=== PATIENT | male | born 1950 | race Caucasian/White ===

== ENCOUNTER 2016-06-12 05:28 | Inpatient (IN) | payer MEDICAID, OTHER ==
[2016-06-12] MEDS ORDERED: Heparin for STEMI(*) 5,000 UNITS/ML 1 ML VIAL IV ONE (05:39)
[2016-06-12] MEDS ORDERED: Aspirin Low Dose CHEW TAB* 81 MG PO ONE (05:39)
[2016-06-12] MEDS ORDERED: Ticagrelor* 90 MG TAB PO ONE ×2 (05:39)
[2016-06-12] MEDS ORDERED: Heparin VIAL(*) 5000 UNITS/ML VIAL (FIVE THOUSAND) ONE (05:39)
[2016-06-12] MEDS ORDERED: Aspirin EC Low Dose* 81 MG TAB.EC ONE (05:39)
[2016-06-12] MEDS ORDERED: Nitroglycerin TAB 0.4 MG* 0.4 MG TAB ONE (05:39)
[2016-06-12] MEDS ORDERED: Midazolam* 1 MG/ML 5 ML VIAL (5 MG) ONE (05:43)
[2016-06-12] MEDS ORDERED: Iohexol 350 (CONTRAST) 200 ML MDV IV ONE (05:43)
[2016-06-12] MEDS ORDERED: Heparin 2 UNITS/ML IVPREMIX* 2,000 ML IV ONE (05:43)
[2016-06-12] MEDS ORDERED: fentaNYL* 50 MCG/ML 2 ML VIAL (100 MCG VIAL) ONE (05:43)
[2016-06-12] MEDS ORDERED: nitroGLYCERIN DRIP* 250 ML ONE ×2 (05:44→06:11)
[2016-06-12] MEDS ORDERED: Lidocaine 1% INJ* 10 MG/ML 30 ML SDV ONE (05:44)
[2016-06-12 05:52] LABS: Hematocrit 48 % (42-52); Hemoglobin 16.2 g/dl (14.0-18.0); Mean Corpuscular HGB Conc 34 g/dl (31-36); Mean Corpuscular Hemoglobin 29 pg (27-31); Mean Corpuscular Volume 85 fL (80-94); Mean Platelet Volume 8 um3 (7.4-10.4); Red Blood Count 5.69 10^6/ul (4.0-5.4); Red Cell Distribution Width 14 % (10.5-15); White Blood Count 11.2 10^3/ul (3.5-10.8)
[2016-06-12 06:04] LABS: Albumin 4.2 g/dL (3.2-5.2); BUN/Creatinine Ratio 16.7 (8-20); Calcium 9.7 mg/dL (8.6-10.3); EGFR African American 94.3 (>60); EGFR Non-African American 73.3 (>60); Globulin 3.5 g/dL (2-4); Total Bilirubin 0.4 mg/dL (0.2-1.0); Total Protein 7.7 g/dL (6.4-8.9)
[2016-06-12 06:10] LABS: Troponin I 1.39 ng/mL (<0.04)
[2016-06-12] MEDS ORDERED: Heparin(*) 1000 UNIT/ML 10 ML VIAL CATH LAB IV ONE (06:11)
[2016-06-12] MEDS ORDERED: VERAPAMIL 2.5 MG/ML 4 ML VIAL ONE (06:11)
--- NOTE | 2016-06-12 06:33 | ED ---
Christina Pelletier Anna, scribed for Declan Galvan MD on 06/12/16 at 0533 . HPI Chest Pain - HPI Summary HPI Summary: Patient is a 66 y/o male coming to [facility] presenting with sudden onset of constant, mid-sternal chest pain that began last night at 1800. He additionally reports left arm pain and jaw pain. His history is significant for HTN. He reports he has never had pain like this before. He has not taken any pain medication. He has not had any Aspirin today, though he normally takes 81 mg each day. - History of Current Complaint Hx Obtained From: Patient Onset/Duration: Started Hours Ago, Still Present - Additional Pertinent History Primary Care Physician: [id number] - Allergy/Home Medications Allergies/Adverse Reactions: Allergies Allergy/AdvReac Type Severity Reaction Status Date / Time No Known Allergies Allergy Verified 01/20/16 18:10 Home Medications: Home Medications Escitalopram (NF) [Lexapro (NF)] 10 mg PO DAILY 06/12/16 [History Confirmed 09/23] PMH/Surg Hx/FS Hx/Imm Hx Cardiovascular History: Reports: Hx Coronary Artery Disease, Hx Hypertension - ON MEDICATION, Other Cardiovascular Problems/Disorders - BLOCKAGE LEFT SIDE OF HEART History: Reports: Hx Kidney Infection - ONE YEAR AGO, Other Problems/ Disorders - enlarged prostate Musculoskeletal History: Reports: Other Musculoskeletal History Sensory History: Reports: Hx Cataracts, Hx Contacts or Glasses Denies: Hx Hearing Aid Opthamlomology History: Reports: Hx Cataracts, Hx Contacts or Glasses Psychiatric History: Reports: Hx Anxiety - Surgical History Hx Anesthesia Reactions: No - Immunization History Date of Tetanus Vaccine: unknown Date of Influenza Vaccine: never - Family History Known Family History: Positive: Hypertension - Social History Alcohol Use: None Substance Use Type: Reports: None Smoking Status (MU): Light Every Day Tobacco Smoker Type: Cigarettes Amount Used/How Often: 1 PPD Have You Smoked in the Last Year: Yes Review of Systems Positive: Chest Pain Positive: Myalgia - left arm pain All Other Systems Reviewed And Are Negative: Yes Physical Exam Triage Information Reviewed: Yes Vital Signs On Initial Exam: Initial Vitals BP 128/96 06/12/16 05:38 Vital Signs Reviewed: Yes Appearance: Positive: Ill-Appearing, Pain Distress - moderate discomfort Skin: Positive: Warm, Diaphoretic Head/Face: Positive: Normal Head/Face Inspection Eyes: Positive: QUINTEN ENT: Positive: Hearing grossly normal Neck: Positive: Supple Respiratory/Lung Sounds: Positive: Clear to Auscultation, Breath Sounds Present Cardiovascular: Positive: RRR. Negative: Murmur Abdomen Description: Positive: Nontender, Soft Bowel Sounds: Positive: Present Musculoskeletal: Positive: Strength/ROM Intact Neurological: Positive: Sensory/Motor Intact, Alert, Oriented to Person Place, Time Psychiatric: Positive: Normal Diagnostics - Vital Signs Vital Signs Temp Pulse Resp BP Pulse Ox 06/12/16 05:41 98.3 F 82 23 145/93 96 06/12/16 05:39 83 19 95 06/12/16 05:38 128/96 - Laboratory Lab Results: Lab Results 06/12/16 06/12/16 06/12/16 Range/Units 05:40 05:40 05:40 WBC 11.2 H (3.5-10.8) 10^3/ul RBC 5.69 H (4.0-5.4) 10^6/ul Hgb 16.2 (14.0-18.0) g/dl Hct 48 (42-52) % MCV 85 (80-94) fL MCH 29 (27-31) pg MCHC 34 (31-36) g/dl RDW 14 (10.5-15) % Plt Count 253 (150-450) 10^3/ul MPV 8 (7.4-10.4) um3 Neut % (Auto) 73.7 (38-83) % Lymph % (Auto) 16.1 L (25-47) % [place] % (Auto) 7.0 (1-9) % Eos % (Auto) 2.1 (0-6) % Baso % (Auto) 1.1 (0-2) % Absolute Neuts (auto) 8.3 H (1.5-7.7) 10^3/ul Absolute Lymphs (auto) 1.8 (1.0-4.8) 10^3/ul Absolute Monos (auto) 0.8 (0-0.8) 10^3/ul Absolute Eos (auto) 0.2 (0-0.6) 10^3/ul Absolute Basos (auto) 0.1 (0-0.2) 10^3/ul Absolute Nucleated RBC 0.01 10^3/ul Nucleated RBC % 0.1 INR (Anticoag Therapy) 0.88 L (0.89-1.11) APTT 30.3 (26.0-36.3) seconds Sodium 133 (133-145) mmol/L Potassium 4.0 (3.5-5.0) mmol/L Chloride 102 (101-111) mmol/L Carbon Dioxide 24 (22-32) mmol/L Anion Gap 7 (2-11) mmol/L BUN 17 (6-24) mg/dL Creatinine 1.02 (0.67-1.17) mg/dL Est GFR ( Amer) 94.3 (>60) Est GFR (Non-Af Amer) 73.3 (>60) BUN/Creatinine Ratio 16.7 (8-20) Glucose 126 H (70-100) mg/dL Lactic Acid (0.5-2.0) mmol/L Calcium 9.7 (8.6-10.3) mg/dL Total Bilirubin 0.40 (0.2-1.0) mg/dL AST 29 (13-39) U/L ALT 29 (7-52) U/L Alkaline Phosphatase 92 (34-104) U/L Total Creatine Kinase 324 H (10-223) U/L CK-MB (CK-2) 29.9 H (0.6-6.3) ng/mL Myoglobin 190.4 H (17.4-105.7) ng/mL Troponin I 1.39 H* (<0.04) ng/mL B-Natriuretic Peptide ( - 100) pg/mL Total Protein 7.7 (6.4-8.9) g/dL Albumin 4.2 (3.2-5.2) g/dL Globulin 3.5 (2-4) g/dL Albumin/Globulin Ratio 1.2 (1-3) LDL Cholesterol Direct 106 mg/dL Blood Type Antibody Screen 06/12/16 06/12/16 06/12/16 Range/Units 05:40 05:40 05:40 WBC (3.5-10.8) 10^3/ul RBC (4.0-5.4) 10^6/ul Hgb (14.0-18.0) g/dl Hct (42-52) % MCV (80-94) fL MCH (27-31) pg MCHC (31-36) g/dl RDW (10.5-15) % Plt Count (150-450) 10^3/ul MPV (7.4-10.4) um3 Neut % (Auto) (38-83) % Lymph % (Auto) (25-47) % [place] % (Auto) (1-9) % Eos % (Auto) (0-6) % Baso % (Auto) (0-2) % Absolute Neuts (auto) (1.5-7.7) 10^3/ul Absolute Lymphs (auto) (1.0-4.8) 10^3/ul Absolute Monos (auto) (0-0.8) 10^3/ul Absolute Eos (auto) (0-0.6) 10^3/ul Absolute Basos (auto) (0-0.2) 10^3/ul Absolute Nucleated RBC 10^3/ul Nucleated RBC % INR (Anticoag Therapy) (0.89-1.11) APTT (26.0-36.3) seconds Sodium (133-145) mmol/L Potassium (3.5-5.0) mmol/L Chloride (101-111) mmol/L Carbon Dioxide (22-32) mmol/L Anion Gap (2-11) mmol/L BUN (6-24) mg/dL Creatinine (0.67-1.17) mg/dL Est GFR ( Amer) (>60) Est GFR (Non-Af Amer) (>60) BUN/Creatinine Ratio (8-20) Glucose (70-100) mg/dL Lactic Acid 1.6 (0.5-2.0) mmol/L Calcium (8.6-10.3) mg/dL Total Bilirubin (0.2-1.0) mg/dL AST (13-39) U/L ALT (7-52) U/L Alkaline Phosphatase (34-104) U/L Total Creatine Kinase (10-223) U/L CK-MB (CK-2) (0.6-6.3) ng/mL Myoglobin (17.4-105.7) ng/mL Troponin I (<0.04) ng/mL B-Natriuretic Peptide 236 H ( - 100) pg/mL Total Protein (6.4-8.9) g/dL Albumin (3.2-5.2) g/dL Globulin (2-4) g/dL Albumin/Globulin Ratio (1-3) LDL Cholesterol Direct mg/dL Blood Type O Positive Antibody Screen Pending Result Diagrams: 06/12/16 05:40 06/12/16 05:40 Lab Statement: Any lab studies that have been ordered have been reviewed, and results considered in the medical decision making process. - EKG 0527 Cardiac Rate: NL - 82 bpm EKG Rhythm: Sinus Rhythm Ectopy: None EKG Interpretation: Acute Anterior STEMI Chest Pain Course/Dx - Course Assessment/Plan: Patient is a 66 y/o male [facility] presenting with sudden onset of constant, mid-sternal chest pain that began last night at 1800. He additionally reports left arm pain and jaw pain. His history is significant for HTN. He reports he has never had pain like this before. He has not taken any pain medication. He has not had any Aspirin today, though he normally takes 81 mg each day. EKG reveals acute anterior STEMI. Labs reveal troponin of 1.39, BNP of 236, Glucose of 126, myoglobin of 190.4, creatine kinase of 324, CK-MB of 29.9, INR of .88. 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 - Diagnoses Provider Diagnoses: STEMI (ST elevation myocardial infarction) During the Visit The Following Alert/Code Occurred: STEMI - Provider Notifications Instructed by Provider To: Admit As Inpatient - Critical Care Time Critical Care Time: 30-74 min Discharge - Discharge Plan Condition: Critical Disposition: ADMITTED TO [facility] documentation as recorded by the Christina fisher Anna accurately reflects the service I personally performed and the decisions made by , Declan Galvan MD.
--- NOTE | 2016-06-12 07:42 | RAD ---
INDICATION: Chest pain. COMPARISON: Comparison is made with a prior chest x-ray study from January 20, 2016. TECHNIQUE: A portable view of the chest was obtained. FINDINGS: Cardiac and mediastinal contours appear to be within normal limits. The lungs are clear. No pleural effusion is seen. IMPRESSION: NO EVIDENCE FOR ACUTE DISEASE.
[2016-06-12] MEDS ORDERED: Acetaminophen TAB* 325 MG PO PRN (07:46)
[2016-06-12] MEDS ORDERED: Ondansetron INJ* 2 MG/ML VIAL IV PRN ×2 (07:46→14:17)
[2016-06-12] MEDS ORDERED: oxyCODONE/Acetamin 5/325 MG* TAB PO PRN (07:46)
[2016-06-12] MEDS ORDERED: Nitroglycerin TAB 0.4 MG* 0.4 MG TAB SL PRN (07:46)
[2016-06-12] MEDS ORDERED: Zolpidem TAB* 5 MG PO PRN (07:46)
[2016-06-12] MEDS ORDERED: Docusate CAP* 100 MG PO PRN (07:46)
[2016-06-12] MEDS: Finasteride TAB* 5 MG PO SCH (08:24)
[2016-06-12] MEDS: Citalopram TAB* 20 MG PO SCH (08:25)
[2016-06-12] MEDS: Metoprolol Tartrate TAB* 25 MG PO SCH ×3 (08:25→23:39)
[2016-06-12] MEDS: Atorvastatin* 80 MG TAB PO SCH ×2 (08:25→16:22)
--- NOTE | 2016-06-12 12:43 | HP ---
HISTORY AND PHYSICAL: DATE OF ADMISSION: 06/12/16 CHIEF COMPLAINT: The patient presents with severe chest discomfort since yesterday waxing and waning, now with acute ST segment elevation in the anterior leads with Q- waves in V1-3 and small Q in V4. HISTORY OF PRESENT ILLNESS: The patient is a 66-year-old gentleman whose cardiac history dates back to the late when he had a normal cardiac catheterization down at [facility]. He was evaluated for chest discomfort in 2011 and a Lexiscan stress test had shown no definitive wall motion abnormalities with some question of thinning of the anterior wall, which suggested re-perfusion on resting images. Despite the enzymes being negative and no EKG changes of ischemia, I offered him the potential for an invasive workup and he refused it. Medical management was pursued. He continued to smoke. He did not follow up with me as an outpatient. He has a history of vascular problems with a left subclavian stenosis of 75% to 80% on CT angiogram back from 2011. Yesterday he started having the onset of chest discomfort with marked diaphoresis, mild nauseousness. There was some radiation up to the throat and somewhat to the arms. He did not vomit. He obviously had mild shortness of breath that waxed and waned throughout the night. This morning, he again noticed it perhaps slightly worsen and as such, decided to come to the emergency room. In the emergency room, an EKG was performed which showed ST segment elevation anteriorly with already Q- waves present in V1 through V3 and a small Q in V4 as well. He is still having symptoms. The decision was made to proceed for cardiovascular laboratory. The risks and benefits were explained. He understood them and wished to proceed. PAST MEDICAL HISTORY: Includes hypertension, smoking history, peripheral vascular disease. As mentioned, he denies any diabetes. Denies any history of increased cholesterol and he has no known history of early family heart disease. In addition, history of elevated PSAs. REVIEW OF SYSTEMS: Pertinent to proceeding to the cardiovascular lab, he denied any history of hematochezia, hematemesis, or hematuria. Denied any kidney disease, any dye allergy. No history of stroke or TIA. PHYSICAL EXAMINATION GENERAL: When I see him in the emergency room reveals a gentleman in acute distress. VITAL SIGNS: When I saw him the emergency room revealed blood pressure 145/93, pulse 82, O2 saturation 96%, respirations 22. HEENT: Conjunctivae are pink. Sclerae are clear. Mouth revealed moist mucosa. NECK: Supple with no increased JVP. LUNGS: Revealed no accessory muscle usage. There was good excursion of lungs, was fairly clear to A and P. HEART: Revealed no visible heaves, no palpable heaves or thrills. Heart sounds were distant in nature. I could not appreciate any significant systolic or diastolic murmur. ABDOMEN: Soft, nontender without organomegaly. EXTREMITIES: Without clubbing, cyanosis, or kya pitting edema. The distal pulses were diminished. The right femoral pulse was palpable. NEUROLOGIC: The patient is alert and oriented with normal mentation. MUSCULOSKELETAL: The patient moves all extremities appropriately. PSYCHOLOGICAL: The patient with appropriate affect for his current medical status. LABORATORY DATA/DIAGNOSTIC DATA: EKG revealed ST segment elevation in V4 through V6 with Q-waves in V1 through V3, small Q-wave in V4, mild ST segment depression in 1, aVL and V6. OVERALL ASSESSMENT: Aldo now presents in a late presentation ST segment elevation myocardial infarction, perhaps as much as 12 hours into this. It has been waxing and waning still with current symptoms and ST segment elevation. We will, therefore, proceed emergently to the cardiovascular laboratory in an attempt to open up what we believe to be a proximal left anterior descending artery occlusion. The patient has received 6000 units of heparin, Brilinta 180 mg loading, and full dose aspirin. Further management will be made pending the results of the cardiac catheterization. The risks and benefits were explained to him and he understands them and wishes to proceed. CC: Presley Murray MD * [id number]/[facility] #: [id number] ADALI
[2016-06-12 13:22] LABS: Creatine Kinase 1793 U/L (10-223)
[2016-06-12] MEDS: Nicotine PATCH 14 MG/24 HR* PATCH TRANSDERM SCH (13:28)
[2016-06-12 13:30] LABS: Troponin I > 85.00 ng/mL (<0.04)
[2016-06-12] MEDS: NS 0.9% 1000 ML* 1,000 ML IV SCH (17:52)
[2016-06-12] MEDS: Ticagrelor* 90 MG TAB PO SCH (17:52)
[2016-06-12 19:02] LABS: Troponin I 58.3 ng/mL (<0.04)
[2016-06-12] MEDS: Tamsulosin CAP* 0.4 MG PO SCH (20:13)
[2016-06-12] MEDS: Nicotine Patch Removal NOTE PATCH OFF SCH (20:20)
[2016-06-13 00:20] LABS: Troponin I 30.78 ng/mL (<0.04)
--- NOTE | 2016-06-13 00:56 | CATH ---
CARDIAC CATHETERIZATION AND INTERVENTIONAL REPORT: DATE OF PROCEDURE: 06/12/16 - ROOM #ICU-13 INDICATION FOR PROCEDURE: The patient presents with a late presentation anterior wall myocardial infarction with persistent ST segment elevation and chest discomfort. PROCEDURE: Coronary arteriography, balloon angioplasty, and placement of a 2.5 x 24 mm long Synergy drug-eluting stent postdilated 2.6 to 2.7 mm. DESCRIPTION OF PROCEDURE: The patient was interviewed and examined in the emergency room where the risks and benefits were explained. He understood them and wished to proceed. He was brought to the cardiovascular laboratory where a formal time-out was performed. The patient was prepped and draped in a sterile fashion. The right groin area was anesthetized with 1% lidocaine. The right femoral artery was cannulated. Unfortunately, no antegrade movement of the wire despite brisk of flow could be obtained. The wire immediately went down the leg. It was obstructed more proximally. This approach was aborted. The left femoral artery area was examined and no good pulse was felt. The decision was made to approach the procedure with a right radial artery approach. The patient was prepped and draped in a sterile fashion. The right radial artery area was anesthetized with 1% lidocaine. The right radial artery was cannulated and a 6-Afghan Glidesheath was placed. Coronary arteriography was performed utilizing a 5-Afghan 4-curve TIG catheter for the right coronary artery. Guiding views were obtained using a VL3 6- Afghan for the left coronary artery. Of note, the patient has received 6000 units of heparin in the emergency room as well as Brilinta and aspirin. Once the radial artery sheath was placed, the patient also received a radial artery cocktail including 300 mcg of intra-arterial nitroglycerin and 3 mg of verapamil. Intervention was then performed with an 0.014 wire advanced down the left anterior descending artery across the totally occluded proximal LAD. A balloon angioplasty was performed utilizing an Emerge 2.0 x 50 mm long balloon followed by stent deployment with a 2.5 x 24 mm long synergy drug-eluting stent postdilated to high pressures with a 2.5 x 12 mm long balloon. The artery was assessed in multiple views. Following this, a 5-Afghan pigtail catheter was advanced to the ascending aorta where central aortic pressure was recorded. The catheter was then passed across the aortic valve into the left ventricle where left ventricular pressure was recorded. Left ventriculography was deferred at this time and pullback was performed. Following this, the catheter was removed and the arterial sheath was removed and hemostasis was obtained with a Vas band. The reverse Barbeau sign was an A with the Vas band in place. The right groin area which had been controlled for hemostasis with manual pressure after aborting the right femoral artery approach was stable with no evidence of significant hematoma. The total contrast used was 150 cc of Omnipaque dye. The radiation exposure included 16.2 minutes of fluoro time. The air kerma radiation was 1688. The DAPA radiation was 9873 microgray per meter squared. RESULTS: HEMODYNAMIC DATA: Left heart catheterization - central aortic pressure recorded at 134/38 with a mean of 93, left ventricular pressure 135 over left ventricular end- diastolic pressure of 19 to 22. CORONARY ARTERIOGRAPHY: A. Right coronary artery - a dominant vessel supplying the PDA and 2 posterior left ventricular branches. There was moderate to significant disease seen with a significant eccentric-appearing 75% to 80% lesion seen in the midportion of the right coronary artery just after the first acute marginal branch. It is seen only well in the BURUNDIAN projection. The rest of the right coronary artery had 30% proximal narrowing and 30% distal narrowing within the vessel. B. Left coronary artery: 1. Left main - mild narrowing of 10% to 15% noted. 2. Left anterior descending artery - left anterior descending artery was totally occluded after a high posteriorly directed diagonal branch. On reconstitution of the vessel, it supplied the anterior wall to apical region with thin diagonal branches that were extremely small in caliber. 3. Circumflex artery - a nondominant vessel supplying a thin first and second obtuse marginal branch followed by a moderate-sized third obtuse marginal branch which traversed to the inferior apical region. The proximal portion of the circumflex had an eccentric 45% lesion noted. INTERVENTION TO TOTALLY OCCLUDED PROXIMAL LAD: Successful reconstitution of proximal LAD with balloon angioplasty and placement of a 2.5 x 24 mm long Synergy drug-eluting stent dilated to high pressures to obtain 2.6 to 2.7 mm, JEANINE-3 flow, no dissection seen, 0% residual stenosis. OVERALL ASSESSMENT: Successful intervention to totally occluded proximal LAD with late presentation by history and EKG appearance. There appears to be a possible significant lesion in the mid right coronary artery just after the take-off of the first acute marginal branch. This will be evaluated at a later date with the decision whether or not to proceed with intervention to that area. Of note, the patient seems to have significant vascular disease and/or inability to enter the right femoral artery area as well as a severely reduced left femoral artery pulse with a history of claudication to that area as well. He is known to have a history of vascular disease with a left subclavian artery stenosis. At this point in time, aggressive risk factor management with high-dose statin therapy with dual antiplatelet therapy, beta-anabelle therapy, and smoking cessation is paramount to the patient's ongoing care. Beta-anabelle and THOMAS inhibitor most likely will be given in light of the anterior myocardial infarction and the fact that there is probably significant damage as evidenced by EKG findings and history of probable 12- hour symptomatic period before intervention. CC: Dr. Presley Murray* [id number]/[facility] #: [id number] MTDD
[2016-06-13] MEDS: Ticagrelor* 90 MG TAB PO SCH (05:31)
[2016-06-13 05:54] LABS: Hematocrit 36 % (42-52); Mean Corpuscular HGB Conc 33 g/dl (31-36); Mean Corpuscular Hemoglobin 28 pg (27-31); Mean Corpuscular Volume 85 fL (80-94); Mean Platelet Volume 8 um3 (7.4-10.4); Red Blood Count 4.27 10^6/ul (4.0-5.4); Red Cell Distribution Width 14 % (10.5-15); White Blood Count 12.4 10^3/ul (3.5-10.8)
[2016-06-13 06:05] LABS: Albumin 2.3 g/dL (3.2-5.2); EGFR African American 158.6 (>60); EGFR Non-African American 123.3 (>60); HDL Cholesterol 22.8 mg/dL; Total Bilirubin 0.5 mg/dL (0.2-1.0); Total Protein 4.3 g/dL (6.4-8.9)
[2016-06-13] MEDS: NS 0.9% 1000 ML* 1,000 ML IV SCH (06:18)
[2016-06-13 06:53] LABS: Calcium 6.3 mg/dL (8.6-10.3)
[2016-06-13] MEDS ORDERED: Omeprazole CAP* 20 MG PO SCH (07:30)
[2016-06-13] MEDS: Metoprolol Tartrate TAB* 25 MG PO SCH ×3 (07:39→21:14)
[2016-06-13] MEDS: Nicotine PATCH 14 MG/24 HR* PATCH TRANSDERM SCH (09:01)
[2016-06-13] MEDS: Aspirin Low Dose CHEW TAB* 81 MG PO SCH (09:01)
[2016-06-13] MEDS: Finasteride TAB* 5 MG PO SCH (09:01)
[2016-06-13] MEDS: Citalopram TAB* 20 MG PO SCH (09:01)
--- NOTE | 2016-06-13 12:09 | ECHO ---
Patient: SHRUTI VILLANUEVA [facility] Rec#: [id number] : 1950 Date: 06/13/2016 Age: 66y Height: 180 cm / 70.9 in Weight: 107 kg / 235.8 lbs Sex: M BSA: 2.26 Room#: [facility] Admit Date#: 06/12/2016 Type: Inpatient Referring: Barrie Alba MD Reading: Yohannes Galvez MD Electric Container Tester: Syed Tristan RDCS CC: Presley Murray MD Transthoracic Echocardiogram Indication: S/P PCI BP: 100/93 HR: 63 Rhythm: NSR Findings History: HLD,HTN.smoker, PVD Technical Comments: The study quality is fair. Completed 1020 The study is technically limited due to patient body habitus. The study is technically limited due to the patient's smoking history. Left Ventricle: The left ventricular chamber size is normal. There is a prominent septal knuckle. There is a focal wall motion abnormality present. There is mild to moderately decreased left ventricular systolic function. The estimated ejection fraction is 35-40%. Abnormal left ventricular diastolic filling is observed, consistent with impaired relaxation. The apical inferior wall segment is hypokinetic (score 2). The mid anterior, and apical anterior wall segments are akinetic (score 3). Overall wallmotion score index is 2.67 A thrombus is visualized in the left ventricular apex. Left Atrium: The left atrial chamber size is normal. Right Ventricle: The right ventricular cavity size is normal. The right ventricular global systolic function is normal. Right Atrium: The right atrial cavity size is normal. Aortic Valve: The aortic valve is trileaflet. There is no evidence of aortic regurgitation. There is no evidence of aortic stenosis. Mitral Valve: The mitral valve leaflets appear normal. There is no evidence of mitral regurgitation. There is no evidence of mitral stenosis. Tricuspid Valve: There is no evidence of tricuspid valve regurgitation. Pulmonic Valve: The pulmonic valve structure is not well visualized. Pericardium: There is no pericardial effusion. Aorta: There is no dilatation of the ascending aorta. There is no dilatation of the aortic arch. There is no dilation of the aortic root. Pulmonary Artery: The main pulmonary artery is not well visualized. Venous: The venous system is not well visualized. Conclusions There is moderately decreased left ventricular systolic function. The estimated ejection fraction is 35-40%. The apical inferior wall segment is hypokinetic (score 2). The mid anterior, and apical anterior wall segments are akinetic (score 3). A thrombus is visualized in the left ventricular apex. The right ventricular global systolic function is normal. There is no evidence of aortic regurgitation. There is no evidence of mitral regurgitation. There is no evidence of tricuspid valve regurgitation. There is no pericardial effusion. There is no dilatation of the ascending aorta. Compared to study of 06/02/11, the LV function is worse, The thrombus in apex is new. Valve function is the same Measurements Name Value Normal Range RVIDd (AP) 2D 1.9 cm (0.9 - 2.6) RVDdMajor (2D) 2.6 cm (2.2 - 4.4) RAd ISD 4CH 5.9 cm (3.4 - 4.9) RA (A4C)W 3.7 cm (2.9 - 4.6) IVSd (2D) 1.2 cm (0.6 - 1) LVPWd (2D) 0.9 cm (0.6 - 1) LVIDd (2D) 5.5 cm (3.6 - 5.4) LVIDs (2D) 3.5 cm - LV FS (2D) 36 % (25 - 45) Aortic Annulus 1.7 cm (1.4 - 2.6) Ao root diameter (2D) 3.1 cm (2.1 - 3.5) Ascending Ao 3.1 cm (2.1 - 3.4) Aortic arch 1.4 cm (1.8 - 3.4) LA dimension (AP) 2D 4.3 cm (2.3 - 3.8) LAd ISD 4CH 5.1 cm (2.9 - 5.3) LA ISD 4CH W 3.2 cm (2.5 - 4.5) Name Value Normal Range LA ESV SP 4CH (A/L) 49 ml - LA ESV SP 2CH (A/L) 53 ml - LA ESV BP (A/L) 55 ml - LA ESV BP (A/L) index 24.2 ml/m2 - LA ESV SP 4CH (MOD) 46 ml - LA ESV SP 2CH (MOD) 51 ml - Name Value Normal Range MV E-wave Vmax 0.54 m/sec - MV deceleration time 142 msec - MV A-wave Vmax 0.81 m/sec - MV E:A ratio 0.66 ratio - LV septal e' Vmax 0.05 m/sec - LV lateral e' Vmax 0.08 m/sec - LV E:e' septal ratio 10.8 ratio - LV E:e' lateral ratio 6.75 ratio - Name Value Normal Range LVOT diameter 1.9 cm - LVOT Vmax 0.9 m/sec - Name Value Normal Range PV Vmax 0.9 m/sec - Wallmotion BAS Not Seen BA Not Seen BAL Not Seen SHYANN Not Seen BI Not Seen BIS Not Seen MAS Not Seen MA Akinetic MAL Not Seen MIL Not Seen TN Not Seen MIS Not Seen Not Seen AA Akinetic AL Not Seen AI Hypokinetic APEX Hypokinetic
[2016-06-13] MEDS: Atorvastatin* 80 MG TAB PO SCH (16:24)
[2016-06-13] MEDS ORDERED: Potassium Chlor TAB* 20 MEQ TAB.ER PO ONE (16:36)
[2016-06-13] MEDS ORDERED: Warfarin TAB(*) 5 MG PO SCH (17:00)
[2016-06-13] MEDS: Captopril TAB* 12.5 MG PO SCH ×2 (17:23→21:14)
[2016-06-13] MEDS: Clopidogrel TAB* 75 MG PO SCH (17:23)
[2016-06-13] MEDS: Tamsulosin CAP* 0.4 MG PO SCH (21:13)
[2016-06-13] MEDS: Nicotine Patch Removal NOTE PATCH OFF SCH (21:14)
[2016-06-14 06:03] LABS: BUN/Creatinine Ratio 20.2 (8-20); Calcium 9.1 mg/dL (8.6-10.3); EGFR African American 92.2 (>60); EGFR Non-African American 71.7 (>60); Potassium 4.1 mmol/L (3.5-5.0)
[2016-06-14] MEDS: CMCS: Pantoprazole TAB (NF) 40 MG TAB PO SCH (07:47)
[2016-06-14] MEDS: Nicotine PATCH 14 MG/24 HR* PATCH TRANSDERM SCH (08:22)
[2016-06-14] MEDS: Clopidogrel TAB* 75 MG PO SCH (08:24)
[2016-06-14] MEDS: Captopril TAB* 12.5 MG PO SCH ×3 (08:24→20:51)
[2016-06-14] MEDS: Metoprolol Tartrate TAB* 25 MG PO SCH ×3 (08:24→20:51)
[2016-06-14] MEDS: Aspirin Low Dose CHEW TAB* 81 MG PO SCH (08:25)
[2016-06-14] MEDS: Finasteride TAB* 5 MG PO SCH (08:25)
[2016-06-14] MEDS: Citalopram TAB* 20 MG PO SCH (08:25)
[2016-06-14] MEDS ORDERED: Enoxaparin(*) 100 MG/ML SYR SUBCUT SCH (14:00)
[2016-06-14] MEDS ORDERED: Perflutren Lipid Microsphere* 1.1 MG/ML VIAL IV PRN (14:08)
--- NOTE | 2016-06-14 15:35 | ECHO ---
Patient: SHRUTI VILLANUEVA [facility] Rec#: [id number] : 1950 Date: 06/14/2016 Age: 66y Height: 178 cm / 70.1 in Weight: 107 kg / 235.8 lbs Sex: M BSA: 2.24 Room#: [facility] Admit Date#: 06/12/2016 Type: Inpatient Referring: Alvina Medrano MD Reading: Trini Fernandez MD Assistant Program Director: Yesenia Madsen [facility] Transthoracic Echocardiogram Indication: STEMI BP: 99/68 HR: 70 Rhythm: NSR Findings History: STEMI 06/12/2016 with PCI,smoker,HTN,HLD,PVD. Tjis is a limited study with 1.5ml Definity sonographic enhancement agent to evaluate the LV for thrombus. Technical Comments: The study quality is good. Completed at 1455. Left Ventricle: No thrombus is visualized within the left ventricle. Contrast: Definity was used to optimize study. Intravenous contrast was used to enhance endocardial border definition. Conclusions Limited contrast study of the left ventricle to evaluate for possible thrombus. No thrombus is visualized within the left ventricle. [place] is severely hypokinetic and akinetic on 2 and 4 chamber views. Compared with full echo of 06/13/16, the size of the apical wall motion abnormality has decreased.
[2016-06-14] MEDS: Atorvastatin* 80 MG TAB PO SCH (17:05)
[2016-06-14] MEDS: Tamsulosin CAP* 0.4 MG PO SCH (20:51)
[2016-06-14] MEDS: Ticagrelor* 90 MG TAB PO SCH (20:51)
[2016-06-14] MEDS: Nicotine Patch Removal NOTE PATCH OFF SCH (20:52)
[2016-06-15] MEDS: Captopril TAB* 12.5 MG PO SCH (08:17)
[2016-06-15] MEDS: Aspirin Low Dose CHEW TAB* 81 MG PO SCH (08:17)
[2016-06-15] MEDS: Metoprolol Tartrate TAB* 25 MG PO SCH (08:18)
[2016-06-15] MEDS: Enoxaparin(*) 40 MG/0.4 ML SYR SUBCUT SCH (08:18)
[2016-06-15] MEDS: Finasteride TAB* 5 MG PO SCH (08:18)
[2016-06-15] MEDS: Citalopram TAB* 20 MG PO SCH (08:18)
[2016-06-15] MEDS: CMCS: Pantoprazole TAB (NF) 40 MG TAB PO SCH (08:18)
[2016-06-15] MEDS: Nicotine PATCH 14 MG/24 HR* PATCH TRANSDERM SCH (08:18)
[2016-06-15] MEDS: Ticagrelor* 90 MG TAB PO SCH ×2 (08:18→21:22)
[2016-06-15] MEDS: Lisinopril TAB* 5 MG PO SCH (11:59)
[2016-06-15] MEDS: Atorvastatin* 80 MG TAB PO SCH (16:04)
[2016-06-15] MEDS: Tamsulosin CAP* 0.4 MG PO SCH (21:18)
[2016-06-15] MEDS: Nicotine Patch Removal NOTE PATCH OFF SCH (21:22)
[2016-06-16] MEDS: Metoprolol Tartrate TAB* 25 MG PO SCH ×2 (00:33→09:18)
[2016-06-16] MEDS: Lisinopril TAB* 5 MG PO SCH ×2 (00:35→09:17)
[2016-06-16] MEDS: CMCS: Pantoprazole TAB (NF) 40 MG TAB PO SCH (08:06)
[2016-06-16 08:13] VITALS: BP 106/69
[2016-06-16] MEDS: Nicotine PATCH 14 MG/24 HR* PATCH TRANSDERM SCH (09:15)
[2016-06-16] MEDS: Enoxaparin(*) 40 MG/0.4 ML SYR SUBCUT SCH (09:16)
[2016-06-16] MEDS: Finasteride TAB* 5 MG PO SCH (09:17)
[2016-06-16] MEDS: Ticagrelor* 90 MG TAB PO SCH (09:17)
[2016-06-16] MEDS: Citalopram TAB* 20 MG PO SCH (09:18)
[2016-06-16] MEDS: Aspirin Low Dose CHEW TAB* 81 MG PO SCH (09:18)
--- NOTE | 2016-06-16 12:20 | DS ---
CC: Rubén Barrett; Dr. Galvez DISCHARGE SUMMARY: DATE OF ADMISSION: 06/12/16 DATE OF DISCHARGE: 06/16/16 PRIMARY CARE PHYSICIAN: Rubén Barrett. ELECTRICAL PROSPECTING SUPERVISOR: Dr. Galvez. DISCHARGE DIAGNOSES: 1. Anterior wall ST elevation infarct. 2. Peripheral arterial disease. 3. Tobacco use. 4. LV systolic dysfunction, acute. PROCEDURE: Emergent cardiac cath, stent placement by Dr. Alba on 06/12/16 with 2.5 x 24 Synergy drug-eluting stent, proximal LAD. Access right femoral, unsuccessful, subsequently performed via the right radial. Echocardiography x2, telemetry. CONDITION ON DISCHARGE: Stable. ACTIVITY: No strenuous exertion for 1 week, to walk 30 minutes daily. Wound care - shower only for 2 days. DISCHARGE MEDICATIONS: 1. Aspirin 81 mg daily. 2. Lipitor 80 mg daily. 3. Celexa 20 mg daily. 4. Proscar 5 mg daily. 5. Lisinopril 5 mg daily. 6. Lopressor 25 mg b.i.d. 7. Protonix 20 mg daily. 8. Flomax 0.4 mg daily. 9. Brilinta 90 b.i.d. 10. Nitroglycerin sublingual 0.4 mg p.r.n. HISTORY: See H and P. LABORATORY DATA: On 06/14/16, electrolytes remained stable with a creatinine of 1.04, his baseline. Hemoglobin A1c was minimally elevated at 6.1, random blood sugars here have ranged in the low 120s to normal. Total CPK peaked at 1793 on the second determination, MB at 242 on the second determination, troponin peaked in excess of 85. Cholesterol was 88, triglycerides 84, LDL 88, HDL was 22.8. CBC on 06/13/16, white count minimally elevated at 12.4, hemoglobin 12, hematocrit 36, normal platelet count. Transthoracic echo, 06/14/16, with contrast revealed no apical thrombus suspected on the prior day, apex was severely hypokinetic and akinetic but the size of the apical wall motion abnormality had improved compared to echo on 10/23, which reported EF of 35% to 40%, poor visualization of the apex but a suspected thrombus which was not present with repeat echo with contrast. HOSPITAL COURSE: He presented with anterior ST elevation infarct, post-infarct EKG on 06/14/16 shows QS pattern V1 through V3 with terminal T-wave inversion in the anterolateral leads, and also a Q-wave in aVF consistent with an anterior apical infarct. He underwent a cath which demonstrated LAD occlusion which was opened and stented, he had LV dysfunction postinfarct with initially a suspected apical thrombus, which was not present with contrast the following day. He is tolerating dual antiplatelet therapy, blood pressure has been soft with systolics in the 80s limiting the amount of beta blockade and afterload reduction. He has ambulated. He had not had arrhythmias, heart failure, or recurrence of angina. He has a history of longstanding PAD with claudication, which is by history not limiting, therefore does not require imaging as presently there is no indication for revascularization. Medical management with smoking cessation and antiplatelet therapy is already ongoing. As his claudication is not limiting and he is already on aspirin and Brilinta, I do not recommend adding Pletal because of increased bleeding risk. He apparently has known subclavian stenosis from previous imaging, does not have a history of subclavian steal, does not require imaging or intervention. He received full instruction and risk factor modification, activity. 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 Alba then did the cath via the right radial. The right radial is without complication, as is the right femoral. He has a moderate sized ecchymosis in the right groin, but no hematoma or bruit. Dr. Alba arranged followup with Dr. Galvez in [facility] [place] [facility] for outpatient titration of his heart failure medications and followup. He will follow with Dr. Silverman as previously. His mildly elevated hemoglobin A1c will need to be followed up. Likely, he will need further reinforcement regarding smoking cessation, currently he believes he can stop smoking without nicotine patches or other assistance. On the day of discharge, his blood pressure is 106/69, heart rate is 66. His lungs reveal somewhat long expiratory phase, but no rales or wheezing, JVP is normal, cardiac exam is unremarkable. His right radial artery is patent by reverse Osvaldo's, he has a moderate ecchymosis in the right groin without a hematoma or bruit. He has no edema. [id number]/[facility] #: [id number] [facility]
[2016-06-17] MEDS ORDERED: Lisinopril TAB* 5 MG PO SCH (09:00)
== END 2016-06-16 12:10 | disposition home or self-care (01) | DRG 174 ==
LOC: ED 05:28 → CHICATH 05:55 → ICU 07:21 → MEDTELE 06-14 14:17
PROVIDERS: ADMIT Internal Medicine Cardiovascular Disease; ATTEND Internal Medicine Cardiovascular Disease
PROC: B2111ZZ Fluoroscopy of Multiple Coronary Arteries using Low Osmolar Contrast (ICD-10-PCS; principal; 2016-06-12)
PROC: 4A023N7 Measurement of Cardiac Sampling and Pressure, Left Heart, Percutaneous Approach (ICD-10-PCS; 2016-06-12)
PROC: 027034Z Dilation of Coronary Artery, One Artery with Drug-eluting Intraluminal Device, Percutaneous Approach (ICD-10-PCS; 2016-06-12)
DX: I21.09 ST elevation (STEMI) myocardial infarction involving other coronary artery of anterior wall (principal); I10 Essential (primary) hypertension; I25.10 Atherosclerotic heart disease of native coronary artery without angina pectoris; N40.0 Benign prostatic hyperplasia without lower urinary tract symptoms; H26.9 Unspecified cataract; S30.1XXA Contusion of abdominal wall, initial encounter; F41.9 Anxiety disorder, unspecified; F17.210 Nicotine dependence, cigarettes, uncomplicated; I70.8 Atherosclerosis of other arteries; I73.9 Peripheral vascular disease, unspecified; I51.9 Heart disease, unspecified; Z79.82 Long term (current) use of aspirin; Z82.49 Family history of ischemic heart disease and other diseases of the circulatory system; Z79.02 Long term (current) use of antithrombotics/antiplatelets
CPT/HCPCS: 36415; 71010; 80048; 80053; 80061; 82550; 82553; 83036; 83605; 83721; 83874; 83880; 84484; 85025; 85610; 85730; 86850; 86900; 86901; 87641; 93005; 93306; 93308; 99406; A9270-GY; C1725; C1769; C1876; C1887; C8924; C9606-LD; J1644; J1650; J2001; J2250; J2405; J3010